=== PATIENT | male | born 1955 | race African-American/Black ===

== ENCOUNTER 2016-12-17 14:11 | Emergency (ER) | payer OTHER, MEDICARE ==
[~2016-12-17] VITALS: Ht 182.9 cm; Wt 95.3 kg
[~2016-12-17 14:11] MED LIST: ADVIL200 MG PO; ASPIRIN81 M4 PO; ATENOLOL50 M1 PO; ATORVASTATIN CA80 M1 PO; BACTRIM DS 8001 TAB PO; CIPRO 500MG TA500 MG PO; FAMOTIDINE20 M1 PO; FLAG500 PO; KEFLEX500 MG PO; LISINOPRIL20 MG PO; LISINOPRIL40 M1 PO; LORATADINE10 M1 PO; MULTIVITAMIN1 TAB PO; PERCOCET 325 MG1 TA2 PO; PERCOCET 325 MG1 TAB PO; SOMA 350MG TAB350 MG PO; TRAMADOL50 MG PO; TYLENOL XSTR500 MG PO
[2016-12-17 15:00] LABS: ABSOLUTE BASOPHIL COUNT 0 /CUMM (0.0-0.2); ABSOLUTE EOSINOPHIL COUNT 0.2 /CUMM (0.0-0.7); ABSOLUTE GRANULOCYTE CT 2.3 /CUMM (1.4-6.5); ABSOLUTE MONOCYTE COUNT 0.3 /CUMM (0.10-0.60); BASOPHIL % 0.8 % (0.0-2.0); EOSINOPHIL % 3.9 % (0-5); GRANULOCYTE % 47.2 % (42.2-75.2); HEMATOCRIT 38.5 % (42-52); MEAN CORPUSCULAR HGB 27.6 PG (27.0-31.0); MEAN CORPUSCULAR VOLUME 83.8 FL (80.0-94.0); MEAN PLATELET VOLUME 8.5 FL (7.4-10.4); PLATELET COUNT 249 /CUMM (130-400); RBC DISTRIBUTION WIDTH 14.8 % (11.5-14.5); RED BLOOD CELL CT 4.59 /CUMM (4.70-6.10); WHITE BLOOD CELL COUNT 4.9 /CUMM (4.8-10.8)
[2016-12-17] MEDS ORDERED: BUSPIRONE HCL15 M1 PO (15:40)
[2016-12-17] MEDS ORDERED: CLARITIN10 M1 PO (15:41)
--- NOTE | 2016-12-17 16:13 | RADIOLOGY REPORT ---
EXAMINATION: CHEST 2 VIEWS CLINICAL INFORMATION: Chest pain. COMPARISON: 05/15/2016. TECHNIQUE: PA and lateral views of the chest were obtained. FINDINGS: The cardiac silhouette is not enlarged. The mediastinal and hilar contours are unremarkable. There are neither pleural effusions nor pneumothoraces. There are no consolidations. There is minimal atelectasis at the lateral right lung base. The osseous structures are unremarkable. IMPRESSION: No consolidations. Minimal atelectasis at the lateral right lung base.
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
[2016-12-17 19:56] VITALS: BP 165/87
== END 2016-12-17 20:04 ==
LOC: ERH 14:11
PROVIDERS: Physician Assistant Medical
DX: R07.89 Other chest pain (principal)
CPT/HCPCS: 93005; 93010